=== PATIENT | female | born 1955 | race Caucasian/White ===

== ENCOUNTER 2016-11-11 08:23 | Day surgery (SDC) | payer MEDICARE ==
--- NOTE | ~2016-11-11 | EGD ---
EGD REPORT [facility] [address] [address] NAME: SMOOTH LAWLER : [birth year] STATUS : REG [facility] [place] PAT#: [id number] AGE: 61 ADM/REG DATE : 11/11/16 MR#: [id number] REPORT SERV DATE: 11/11/16 DICTATED BY: JOSH BLAS DATE: 11/11/16 REPORT STATUS : Draft TRANSCRIBED BY: [employer] DATE: 11/11/16 [facility] Patient Name: Smooth Lawler Date of : 1955 Attending MD: JOSH BLAS MD Procedure Date No Time: 11/11/2016 Procedure: Colonoscopy Indications: Colon cancer screening in patient at increased risk: Family history of colon polyps Referring MD: ABDON MONCADA Medicines: as per anesthesia Complications: No immediate complications. Procedure: Pre-Anesthesia Assessment: - ASA Grade Assessment: III - A patient with severe systemic disease. After I obtained informed consent, the scope was passed under direct vision. Throughout the procedure, the patient's blood pressure, pulse, and oxygen saturations were monitored continuously. The PCF [id number] was introduced through the anus and advanced to the cecum, identified by appendiceal orifice and ileocecal valve. The colonoscopy was performed without difficulty. The patient tolerated the procedure. The quality of the bowel preparation was adequate to identify polyps. Findings: The perianal and digital rectal examinations were normal. Two sessile polyps were found in the ascending colon. The polyps were 3 to 4 mm in size. These polyps were removed with a cold biopsy forceps. Resection and retrieval were complete. A few small and large-mouthed diverticula were found in the sigmoid colon and in the descending colon. Internal hemorrhoids were found during endoscopy and were mild. Impression: - Two 3 to 4 mm polyps in the ascending colon. Resected and retrieved. - Diverticulosis in the sigmoid colon and in the descending colon. - Internal hemorrhoids. Recommendation: - Await pathology results. - Repeat colonoscopy for surveillance based on pathology results. Procedure Code(s): --- Professional --- EGD REPORT [facility] [address] [place]. [address] NAME: SMOOTH LAWLER : [birth year] STATUS : REG [facility]#: [id number] AGE: 61 ADM/REG DATE : 11/11/16 MR#: [id number] REPORT SERV DATE: 11/11/16 DICTATED BY: JOSH BLAS DATE: 11/11/16 REPORT STATUS : Draft TRANSCRIBED BY: [employer] DATE: 11/11/16 [id number], Colonoscopy, flexible, proximal to splenic flexure; with biopsy, single or multiple Diagnosis Code(s): --- Professional --- D12.2, Benign neoplasm of ascending colon K64.8, Other hemorrhoids K57.30, Diverticulosis of large intestine without perforation or abscess without bleeding Z12.11, Encounter for screening for malignant neoplasm of colon Z83.71, Family history of colonic polyps CPT copyright 2013 [employer] [place] [employer] [employer]. All rights reserved. The codes documented in this report are preliminary and upon baggage agent supervisor review may be revised to meet current compliance requirements. JOSH BLAS MD 11/11/2016 10:16 AM This report has been signed electronically. Number of Addenda: 0 Note Initiated On: 11/11/2016 9:48 AM Scope Withdrawal Time 0 hours 8 minutes 52 seconds [id number] [place] [address]
[~2016-11-11 08:23] MED LIST: ASAB PO; FISH OIL1200 MG PO; FOLIC ACID800 MCG PO; IMU PO; IVIGLIQ; MULTIVITAMI1 PO; NEXIUM20 M1 PO; NIACIN 500 PO; PYRID180 PO; PYRID60 PO; VITAMIN B-121000 MC1 SL; ZOCOR40 PO
== END 2016-11-11 23:59 | disposition home or self-care (01) ==
LOC: DMU 08:23
PROVIDERS: Internal Medicine Gastroenterology
PROC: 0DBK8ZZ Excision of Ascending Colon, Via Natural or Artificial Opening Endoscopic (ICD-10-PCS; principal; 2016-11-11 09:30)
DX: Z12.11 Encounter for screening for malignant neoplasm of colon (principal); D12.2 Benign neoplasm of ascending colon; K57.30 Diverticulosis of large intestine without perforation or abscess without bleeding; K64.8 Other hemorrhoids; K21.9 Gastro-esophageal reflux disease without esophagitis; G70.00 Myasthenia gravis without (acute) exacerbation; I25.10 Atherosclerotic heart disease of native coronary artery without angina pectoris; Z83.71 Family history of colonic polyps; Z86.010 Personal history of colon polyps; Z95.1 Presence of aortocoronary bypass graft; Z79.82 Long term (current) use of aspirin; Z79.899 Other long term (current) drug therapy; Z98.890 Other specified postprocedural states; Z90.89 Acquired absence of other organs
CPT/HCPCS: 88305